=== PATIENT | female | born 1970 | race Caucasian/White ===

== ENCOUNTER 2017-02-20 07:42 | Emergency (ER) | payer OTHER ==
[~2017-02-20] VITALS: Ht 165.1 cm; Wt 89.9 kg
[~2017-02-20 07:42] MED LIST: CHOLESTEROL PILL PO; LISI-360 PO
[2017-02-20 07:45] VITALS: BP 136/82; PULSE 72; RESP 14; TEMP 98.4; O2SAT 100
[2017-02-20] MEDS ORDERED: TRAM50TA PO (07:52)
[2017-02-20] MEDS ORDERED: IBUP800T23 PO (07:52)
[2017-02-20] MEDS ORDERED: LISI10TA3 PO (07:52)
--- NOTE | 2017-02-20 08:06 | PD ---
HPI Chief Complaint: Head Injury Time Seen by Provider: 07:59 Travel History International Travel<30 days: No Contact w/Intl Traveler<30days: No Traveled to known affect area: No History of Present Illness HPI WHILE WORKING AT [employer], CART WITH METAL SHELF HIT THE RIGHT SIDE OF HER HEAD, NO LOC, NO BLEEDING ON SCENE PFSH Past Medical History High Cholesterol: Yes Hypertension: Yes Musculoskeletal: Yes (Chronic back pain ) Tetanus Vaccination: Unknown Influenza Vaccination: Yes ?: Not LMP: 01/16/17 Tubal Ligation: Yes Past Surgical History Section: Yes Social History Alcohol Use: No Tobacco Use: No Substance Use: No Allergies-Medications (Allergen,Severity, Reaction): Coded Allergies: No Known Allergies (Unverified , 02/20/17) Reported Meds & Prescriptions Reported Meds & Active Scripts Active Reported Lisinopril 10 Mg Tab 10 Mg PO DAILY Ibuprofen 800 Mg Tab 800 Mg PO TID Tramadol (Tramadol HCl) 50 Mg Tab 50 Mg PO QID Review of Systems Except as stated in HPI: all other systems reviewed are Neg Musculoskeletal: Positive: Pain (TO RIGHT SIDE OF SCALP) Physical Exam Narrative GENERAL: SKIN: Warm and dry. HEAD: NO LACERATIONS NOTED, NO HEMOTYMPANUM NOTED, HOWEVER DID NOTE ABRASION AND SCALP CONTUSIOIN TO RIGHT EAR AND TEMPORAL SCALP AREA. EYES: Pupils equal and round. No scleral icterus. No injection or drainage. ENT: No nasal bleeding or discharge. Mucous membranes pink and moist. NECK: Trachea midline. No JVD. CARDIOVASCULAR: Regular rate and rhythm. RESPIRATORY: No accessory muscle use. Clear to auscultation. Breath sounds equal bilaterally. GASTROINTESTINAL: Abdomen soft, non-tender, nondistended. Hepatic and splenic margins not palpable. MUSCULOSKELETAL: Extremities without clubbing, cyanosis, or edema. No obvious deformities. NEUROLOGICAL: Awake and alert. No obvious cranial nerve deficits. Motor grossly within normal limits. Five out of 5 muscle strength in the arms and legs. Normal speech. PSYCHIATRIC: Appropriate mood and affect; insight and judgment normal. Data Data Last Documented VS Vital Signs Date Time Temp Pulse Resp B/P Pulse Ox O2 Delivery O2 Flow Rate FiO2 02/20/17 07:45 98.4 72 14 136/[address] Brain W/O Iv Contrast(Rout) (02/20/17 08:04) Ed Urine Pregnancytest Poc (02/20/17 08:04) MDM Medical Decision Making Medical Screen Exam Complete: Yes Emergency Medical Condition: Yes Medical Record Reviewed: Yes Differential Diagnosis SCALP CONTUSION V ICH V SDH Narrative Course PT NEUROLOGICALLY STABLE, CT READ BY RAD NORMAL, WILL D/C WITH DX SCALP CONTUSION Diagnosis Primary Impression: Contusion of scalp, initial encounter Patient Instructions: General Instructions, Scalp Contusion in Adults (ED) Med/Other Pt SpecificInfo: Prescription(s) given (ROBAXIN FOR MUSCLE SPASM, PT ALREADY ON ULTRAM/MOTRIN COMBO FOR BACK PAIN (H/O)) Scripts Methocarbamol (Robaxin)500 Mg Tab1,000 Mg PO TID #12 TAB Ref 0 Prov:Delfino Briseno MD 02/20/17 Disposition: 01 DISCHARGE HOME Condition: Stable Delfino Briseno MD Feb 20, 2017 08:06
--- NOTE | 2017-02-20 08:34 | RADRPT ---
EXAM DATE/TIME: 02/20/2017 08:07 [facility] COMPARISON: No previous studies available for comparison. INDICATIONS : Objext fell on her head yesterday injury to right side. RADIATION DOSE: 63.09 CTDIvol (mGy) MEDICAL HISTORY : Hypercholesterolemia. Hypertension. SURGICAL HISTORY : Tubal ligation. ENCOUNTER: Initial ACUITY: 2 days PAIN SCALE: 5/10 LOCATION: Right cranial TECHNIQUE: Multiple contiguous axial images were obtained of the head. Using automated exposure control and adj ustment of the mA and/or kV according to patient size, radiation dose was kept as low as reasonably a chievable to obtain optimal diagnostic quality images. DICOM format image data is available electro nically for review and comparison. FINDINGS: CEREBRUM: The ventricles are normal for age. No evidence of midline shift, mass lesion, hemorrhage or acute in farction. No extra-axial fluid collections are seen. POSTERIOR FOSSA: The cerebellum and brainstem are intact. The 4th ventricle is midline. The cerebellopontine angle i s unremarkable. EXTRACRANIAL: The visualized portion of the orbits is intact. SKULL: The calvaria is intact. No evidence of skull fracture. CONCLUSION: Normal examination for a patient of this age. Giancarlo Prakash MD on February 20, 2017 at 8:31 Board Certified Radiologist. This report was verified electronically.
[2017-02-20] MEDS ORDERED: ROBA500T PO (09:24)
[2017-02-20 09:43] VITALS: BP 135/80
== END 2017-02-20 09:49 | disposition home or self-care (01) ==
LOC: PHED 07:42
DX: S00.03XA Contusion of scalp, initial encounter (principal); I10 Essential (primary) hypertension; E78.00 Pure hypercholesterolemia, unspecified; M54.9 Dorsalgia, unspecified; W22.8XXA Striking against or struck by other objects, initial encounter; Y93.89 Activity, other specified; Y92.69 Other specified industrial and construction area as the place of occurrence of the external cause; Y99.0 Civilian activity done for income or pay
CPT/HCPCS: 70450; 84703; 99284